=== PATIENT | male | born 1980 | race Caucasian/White ===

== ENCOUNTER → 2017-01-23 | Outpatient (CLI) | payer BC | LOC: M LAB 06:47 | PROVIDERS: ATTEND Physician Assistant | DX: E29.1 Testicular hypofunction (principal); Z12.5 Encounter for screening for malignant neoplasm of prostate ==

== ENCOUNTER → 2017-07-10 | Outpatient (REF) | payer BC | LOC: M LAB REF 12:44 | DX: L02.219 Cutaneous abscess of trunk, unspecified (principal) | CPT/HCPCS: 87186; 87205 ==

== ENCOUNTER 2018-05-30 05:33 | Emergency (ER) | payer BC ==
[~2018-05-30] VITALS: Ht 182.9 cm; Wt 122.7 kg
[2018-05-30] MEDS ORDERED: NS 1,000 ML IV ONE (06:15)
[2018-05-30] MEDS ORDERED: KETOROLAC 30 MG/ML VIAL (J1885) IV ONE (06:15)
[2018-05-30 06:16] LABS: BASO % 0.3 % (0.0-1.0); EOS % 0.4 % (0.0-3.0); HEMATOCRIT 45.2 % (42.0-52.0); HEMOGLOBIN 15.1 g/dl (13.5-17.5); LYMPH # 1.8 10^3/uL (1.5-4.5); LYMPH % 26.4 % (24.0-44.0); MEAN CORPUSCULAR HEMOGLOBIN 27.6 pg (27.0-33.0); MEAN CORPUSCULAR HGB CONC 33.4 g/dl (32.0-36.5); MEAN CORPUSCULAR VOLUME 82.6 fl (80.0-96.0); MONO # 0.4 10^3/uL (0.0-0.8); NEUTROPHILS # 4.7 10^3/uL (1.8-7.7); NEUTROPHILS % 67.3 % (36.0-66.0); PLATELET COUNT, AUTOMATED 144 10^3/uL (150-450); RED BLOOD COUNT 5.47 10^6/uL (4.30-6.10)
[2018-05-30 06:29] LABS: ALBUMIN 3.8 GM/DL (3.2-5.2); ALT/SGPT 36 U/L (12-78); AMYLASE 34 U/L (25-115); BILIRUBIN,DIRECT 0.1 MG/DL (0.0-0.2); BILIRUBIN,TOTAL 0.4 MG/DL (0.2-1.0); BLOOD UREA NITROGEN 18 MG/DL (7-18); CALCIUM LEVEL 8.9 MG/DL (8.5-10.1); CARBON DIOXIDE LEVEL 22 MEQ/L (21-32); CHLORIDE LEVEL 110 MEQ/L (98-107); CREATININE FOR GFR 1.08 MG/DL (0.70-1.30); GLOMERULAR FILTRATION RATE > 60.0 (>60); GLUCOSE, FASTING 118 MG/DL (70-100); LIPASE 82 U/L (73-393); POTASSIUM SERUM 4.3 MEQ/L (3.5-5.1); SODIUM LEVEL 140 MEQ/L (136-145); TOTAL PROTEIN 7.8 GM/DL (6.4-8.2)
--- NOTE | 2018-05-30 06:40 | REPVR ---
EXAM: US Scrotum EXAM DATE/TIME: 05/30/2018 6:29 AM CLINICAL HISTORY: 38 years old, male; Pain; Scrotum pain; Additional info: Left testicular pain; HX prostatitis TECHNIQUE: Real-time ultrasound of the scrotum and contents with color Doppler and image documentation. COMPARISON: No relevant prior studies available. FINDINGS: Right Testicle: Right testis measures 4.5 x 2.0 x 2.7 cm. No intratesticular mass. Intratesticular blood flow demonstrated. Left Testicle: Left testis measures 3.9 x 1.7 x 2.7 cm. No intratesticular mass. Intratesticular blood flow demonstrated. Epididymides: 6 mm right epididymal cyst. Scrotum: Small left varicocele. IMPRESSION: Unremarkable sonographic appearance of the testes. Electronically signed by: Tereso Allen On 05/30/2018 06:39:49 AM
--- NOTE | 2018-05-30 06:43 | REPVR ---
EXAM: CT Abdomen and Pelvis Without Contrast EXAM DATE/TIME: 05/30/2018 6:15 AM CLINICAL HISTORY: 38 years old, male; Pain; Abdominal pain; Flank; Left; Additional info: Left flank pain; Sudden onset TECHNIQUE: Axial computed tomography images of the abdomen and pelvis without contrast. All CT scans at this facility use at least one of these dose optimization techniques: automated exposure control; mA and/or kV adjustment per patient size (includes targeted exams where dose is matched to clinical indication); or iterative reconstruction. Coronal and sagittal reformatted images were created and reviewed. COMPARISON: No relevant prior studies available. FINDINGS: Lower thorax: No acute airspace or pleural disease. ABDOMEN: Detailed evaluation of the abdominal and pelvic viscera is somewhat limited in the absence of intravenous contrast. Liver: Fatty infiltration of the liver. Gallbladder and bile ducts: No cholelithiasis or biliary ductal dilatation. Pancreas: No pancreatic mass or ductal dilatation. Spleen: Enlarged spleen measuring 12.7 cm in length. Adrenals: Unremarkable adrenals. Kidneys and ureters: Mild left hydronephrosis in association with a 4 mm left UVJ calculus. Mild infiltration left periureteral fat. Stomach and bowel: Mild small bowel dilatation without a transition zone. Mild wall thickening in the nondistended stomach and colon. Diverticula, without pericolonic inflammation. Appendix: No acute appendicitis. PELVIS: Bladder: Nondistended bladder. Reproductive: Unremarkable as visualized. ABDOMEN and PELVIS: Intraperitoneal space: No significant free fluid. Bones/joints: Schmorl's nodes, mild degenerative change, disc bulging. Soft tissues: Small fat containing umbilical hernia. Vasculature: Normal caliber of the abdominal aorta. Lymph nodes: Subcentimeter lymph nodes. IMPRESSION: 1. Mild left hydronephrosis in association with a 4 mm left UVJ calculus. Mild infiltration left periureteral fat. 2. Additional findings as described above. Electronically signed by: Tereso Allen On 05/30/2018 06:43:18 AM
[2018-05-30] MEDS ORDERED: FLOM0.4C39 PO (06:57)
[2018-05-30] MEDS ORDERED: NORCOTAB PO (06:57)
[2018-05-30] MEDS ORDERED: KETO10TAB PO (06:57)
[2018-05-30] MEDS ORDERED: ONDA4TAB6 PO (06:58)
[2018-05-30 07:46] VITALS: BP 133/92
--- NOTE | 2018-05-30 11:58 | ED PDOC ---
Post-Departure Follow-Up susan ruff faxed formal report of ct abd/p for fu Josie Fajardo MD May 30, 2018 11:58
== END 2018-05-30 07:49 | disposition home or self-care (01) ==
LOC: M ED 05:33
DX: N20.1 Calculus of ureter (principal)
CPT/HCPCS: 74176; 76870; 80048; 80076; 81001; 82150; 83690; 85025; 93976; 99284; J1885

== ENCOUNTER → 2018-05-31 | Outpatient (CLI) | payer BC ==
[~2018-05-31] MED LIST: FLOM0.4C39 PO; KETO10TAB PO; NORCOTAB PO; ONDA4TAB6 PO
--- NOTE | 2018-05-31 16:59 | REP ---
Clinical: Ureteral stone. Correlation: CT dated 05/30/2018 Technique: Two supine views of the abdomen and pelvis. Findings: The 4 mm left ureterovesical junction (UVJ) stone on recent CT appears to be unchanged in position within the left rose marie pelvis and should be correlated with physical examination. No further urinary tract calcifications are identified. Bowel gas pattern is nonspecific. Skeletal structures demonstrate age-related changes. No organomegaly. Impression: Continued evidence for 4 mm left UVJ stone. Correlation with physical examination and urinalysis may be warranted. Electronically Signed by Tony Reed MD 05/31/2018 04:50 P
[2018-05-31 17:18] LABS: IONIZED CALCIUM 4.5 MG/DL (4.5-5.3)
[2018-05-31 17:48] LABS: BLOOD UREA NITROGEN 16 MG/DL (7-18); CALCIUM LEVEL 8.2 MG/DL (8.5-10.1); CARBON DIOXIDE LEVEL 26 MEQ/L (21-32); CHLORIDE LEVEL 107 MEQ/L (98-107); CREATININE FOR GFR 0.96 MG/DL (0.70-1.30); GLOMERULAR FILTRATION RATE > 60.0 (>60); GLUCOSE, FASTING 88 MG/DL (70-100); MAGNESIUM LEVEL 2.1 MG/DL (1.8-2.4); PHOSPHORUS LEVEL 3.9 MG/DL (2.5-4.9); POTASSIUM SERUM 4.1 MEQ/L (3.5-5.1); SODIUM LEVEL 141 MEQ/L (136-145); URIC ACID 6.7 MG/DL (3.5-7.2)
== END ==
LOC: M LAB 16:32
PROVIDERS: ATTEND Urology Pediatric Urology
DX: N20.1 Calculus of ureter (principal)

== ENCOUNTER → 2018-05-31 | Outpatient (REF) | payer BC | LOC: M SMT 17:58 | PROVIDERS: ATTEND Urology Pediatric Urology | DX: N20.1 Calculus of ureter (principal) ==

== ENCOUNTER → 2018-05-31 | Outpatient (REF) | payer BC | LOC: M LABSMT 16:00 | PROVIDERS: ATTEND Urology Pediatric Urology | DX: N20.1 Calculus of ureter (principal) ==

== ENCOUNTER → 2018-06-14 | Outpatient (REF) | payer BC | LOC: M SMT 13:30 | PROVIDERS: ATTEND Urology Pediatric Urology | DX: N20.1 Calculus of ureter (principal) ==

== ENCOUNTER → 2018-06-14 | Outpatient (CLI) | payer BC ==
--- NOTE | 2018-06-14 10:44 | REP ---
Supine abdomen two views: Studies performed for follow up of the distal left ureteral calculus identified on the plain film study of 05/31/[address] of 05/30/2018. The previously identified calculus in the distal left ureter on the comparison studies is no longer identified on the current study. The bowel gas pattern is normal. There is mild degenerative disc disease in the lumbar spine. Impression: The previous distal left ureteral calculus is no longer identified. Electronically Signed by Mikhail Giraldo MD 06/14/2018 10:35 A
== END ==
LOC: M SMT 08:04
PROVIDERS: ATTEND Urology Pediatric Urology
DX: Z87.442 Personal history of urinary calculi (principal)

== ENCOUNTER → 2018-06-14 | Outpatient (REF) | payer BC | LOC: M SMT 13:00 | PROVIDERS: ATTEND Urology Pediatric Urology | DX: N20.1 Calculus of ureter (principal) ==

== ENCOUNTER → 2018-06-17 | Outpatient (CLI) | payer BC ==
--- NOTE | 2018-06-17 16:42 | REP ---
CT of the abdomen pelvis without IV and oral contrast for follow up of distal left ureteral calculus: Comparison is 2018. The the previous distal left ureteral calculus is no longer present. There is no bladder calculus. There is no hydronephrosis or perinephric stranding. The right kidney and ureter are unremarkable and unchanged. The visualized lung charles are unremarkable. The unenhanced hepatic parenchyma, gallbladder, pancreas, spleen, adrenals, abdominal aorta, bowel and mesentery are unremarkable and unchanged. Pelvis: The appendix is unremarkable. There is no adenopathy or ascites. The pelvic bowel loops are unremarkable. Impression: The previous distal left ureteral calculus is no longer present. Otherwise, negative CT study of the abdomen and pelvis. Electronically Signed by Mikhail Giraldo MD 06/17/2018 04:34 P
== END ==
LOC: M RAD 16:00
PROVIDERS: ATTEND Urology Pediatric Urology
DX: Z87.442 Personal history of urinary calculi (principal)

== ENCOUNTER → 2018-08-06 | Outpatient (CLI) | payer BC ==
[~2018-08-06] MED LIST changes: +HYDR-3715 PO; -NORCOTAB PO
[2018-08-06 10:37] LABS: FOLLICLE STIMULATING HORMONE 4.9 mIU/mL (1.4-18.1); LUTEINIZING HORMONE 2.1 mIU/mL (1.5-9.3)
[2018-08-09 10:16] LABS: TESTOSTERONE FREE (DIRECT) 4.3 pg/mL (8.7-25.1)
== END ==
LOC: M SMT 08:10
PROVIDERS: ATTEND Urology Pediatric Urology
DX: N20.1 Calculus of ureter (principal)

== ENCOUNTER → 2018-08-20 | Outpatient (REF) | payer BC ==
[2018-08-20 14:08] LABS: SEMEN APPEARANCE OPAQUE (OPAQUE)
[2018-08-20 14:09] LABS: SEMEN VISCOSITY LIQUID (LIQUID); SEMEN VOLUME 3.2 ml (4.0-5.0); WBC CONCENTRATION >1 M/ml (<=1 M/ml)
[2018-08-20 14:10] LABS: SPERM CONCENTRATION 30.1 M/ml (>=15.0)
== END ==
LOC: M SMT 12:18
PROVIDERS: ATTEND Urology Pediatric Urology
DX: N20.1 Calculus of ureter (principal)

== ENCOUNTER → 2019-11-18 | Outpatient (CLI) | payer BC | LOC: M LABSMTC 12:57 | PROVIDERS: ATTEND Family Medicine | DX: Z11.59 Encounter for screening for other viral diseases (principal); Z20.828 Contact with and (suspected) exposure to other viral communicable diseases | CPT/HCPCS: C9803; U0003 ==

== ENCOUNTER → 2021-07-26 | Outpatient (REF) | payer BC | LOC: M SFHCDERM 17:08 | PROVIDERS: ATTEND Dermatology | DX: D23.4 Other benign neoplasm of skin of scalp and neck (principal) ==

== ENCOUNTER → 2021-11-19 | Outpatient (CLI) | payer BC ==
[2021-11-19 15:51] LABS: BASO % 0.4 % (0.0-1.0); EOS # 0.1 10^3/uL (0.0-0.5); EOS % 0.8 % (0.0-3.0); HEMATOCRIT 43.5 % (42.0-52.0); HEMOGLOBIN 14.1 g/dl (13.5-17.5); LYMPH # 1.7 10^3/uL (1.5-5.0); LYMPH % 19.6 % (24.0-44.0); MEAN CORPUSCULAR HEMOGLOBIN 27.3 pg (27.0-33.0); MEAN CORPUSCULAR HGB CONC 32.4 g/dl (32.0-36.5); MEAN CORPUSCULAR VOLUME 84.3 fl (80.0-96.0); MONO # 0.4 10^3/uL (0.0-0.8); MONO % 4.6 % (2.0-8.0); NEUTROPHILS # 6.3 10^3/uL (1.5-8.5); PLATELET COUNT, AUTOMATED 250 10^3/uL (150-450); RED BLOOD COUNT 5.16 10^6/uL (4.30-6.10); WHITE BLOOD COUNT 8.5 10^3/uL (4.0-10.0)
[2021-11-19 16:48] LABS: ALBUMIN 3.4 GM/DL (3.2-5.2); ALT/SGPT 42 U/L (12-78); BILIRUBIN,TOTAL 0.2 MG/DL (0.2-1.0); BLOOD UREA NITROGEN 14 MG/DL (7-18); CALCIUM LEVEL 9.1 MG/DL (8.5-10.1); CARBON DIOXIDE LEVEL 30 MEQ/L (21-32); CHLORIDE LEVEL 105 MEQ/L (98-107); CREATININE FOR GFR 1.06 MG/DL (0.70-1.30); GLOMERULAR FILTRATION RATE > 60.0 (>60); GLUCOSE, FASTING 285 MG/DL (70-100); POTASSIUM SERUM 4.2 MEQ/L (3.5-5.1); SODIUM LEVEL 138 MEQ/L (136-145); TOTAL PROTEIN 7.1 GM/DL (6.4-8.2)
[2021-11-19 17:13] LABS: IMMUNOGLOBULIN E 19.2 IU/ML (<100)
== END ==
LOC: M RAD 14:34
PROVIDERS: ATTEND Allergy & Immunology Allergy
DX: J45.41 Moderate persistent asthma with (acute) exacerbation (principal); R06.00 Dyspnea, unspecified

== ENCOUNTER → 2021-11-21 | Outpatient (CLI) | payer BC ==
[2021-11-21 10:51] LABS: APPEARANCE, URINE CLEAR (CLEAR); BACTERIA, URINE AUTO NEGATIVE (NEGATIVE); BILIRUBIN, URINE AUTO NEGATIVE (NEGATIVE); BLOOD, URINE BLOOD NEGATIVE (NEGATIVE); COLOR, URINE YELLOW (YELLOW); GLUCOSE, URINE (UA) AUTO NEGATIVE (NEGATIVE); KETONE, URINE AUTO NEGATIVE (NEGATIVE); LEUKOCYTE ESTERASE, URINE AUTO NEGATIVE (NEGATIVE); MUCUS, URINE SMALL (NEGATIVE); NITRITE, URINE AUTO NEGATIVE (NEGATIVE); PROTEIN, URINE AUTO NEGATIVE (NEGATIVE); RBC, URINE AUTO 0 /HPF (0-3); SPECIFIC GRAVITY URINE AUTO 1.023 (1.002-1.035); SQUAMOUS EPITHELIAL CELL UR AU 1 /HPF (0-6); UROBILINOGEN, URINE AUTO 0.2 mg/dL (0.0-2.0); WBC, URINE AUTO 0 /HPF (0-3)
[2021-11-21 11:16] LABS: MALB URINE SIEMENS 6.4 MG/L; MAU/CREAT RATIO 3.2 MCG/MG (0.0-30.0)
== END ==
LOC: M LAB 08:51
PROVIDERS: ATTEND Allergy & Immunology Allergy
DX: R73.9 Hyperglycemia, unspecified (principal)

== ENCOUNTER → 2021-12-02 | Outpatient (CLI) | payer BC | LOC: M PLAIMG 12:52 | PROVIDERS: ATTEND Allergy & Immunology Allergy | DX: R05.3 Chronic cough (principal); J32.0 Chronic maxillary sinusitis ==

== ENCOUNTER → 2021-12-16 | Outpatient (CLI) | payer BC ==
[~2021-12-16] MED LIST changes: +METHACHOLINE KIT (J7674) INH ONE
== END ==
LOC: M CARPUL 07:39
PROVIDERS: ATTEND Allergy & Immunology Allergy
DX: J45.41 Moderate persistent asthma with (acute) exacerbation (principal)
CPT/HCPCS: 94070; J7674

== ENCOUNTER → 2022-08-27 | Outpatient (REF) | payer BC ==
[~2022-08-27] MED LIST changes: -METHACHOLINE KIT (J7674) INH ONE
== END ==
LOC: M SFHCDERM 14:19
PROVIDERS: ATTEND Physician Assistant
DX: L72.0 Epidermal cyst (principal)

== ENCOUNTER → 2022-12-25 | Outpatient (CLI) | payer BC ==
[2022-12-25 12:16] LABS: BASO % 0.3 % (0.0-1.0); EOS # 0.1 10^3/uL (0.0-0.5); EOS % 0.9 % (0.0-3.0); HEMATOCRIT 45.3 % (42.0-52.0); HEMOGLOBIN 14.7 g/dl (13.5-17.5); LYMPH % 23.3 % (24.0-44.0); MEAN CORPUSCULAR HEMOGLOBIN 27.1 pg (27.0-33.0); MEAN CORPUSCULAR HGB CONC 32.5 g/dl (32.0-36.5); MEAN CORPUSCULAR VOLUME 83.4 fl (80.0-96.0); MONO # 0.5 10^3/uL (0.0-0.8); MONO % 5.3 % (2.0-8.0); NEUTROPHILS # 6.1 10^3/uL (1.5-8.5); NEUTROPHILS % 69.7 % (36.0-66.0); PLATELET COUNT, AUTOMATED 273 10^3/uL (150-450); RED BLOOD COUNT 5.43 10^6/uL (4.30-6.10); WHITE BLOOD COUNT 8.7 10^3/uL (4.0-10.0)
[2022-12-25 12:23] LABS: ERYTHROCYTE SEDIMENTATION RATE 83 mm/hr (0-15)
[2022-12-25 12:44] LABS: IMMUNOGLOBULIN G 1817 MG/DL (650-1600); IMMUNOGLOBULIN M 122.1 MG/DL (50-300)
[2022-12-25 12:46] LABS: IMMUNOGLOBULIN E 18.3 IU/ML (0-378)
== END ==
LOC: M LAB 11:27
PROVIDERS: ATTEND Allergy & Immunology Allergy
DX: D84.9 Immunodeficiency, unspecified (principal)

== ENCOUNTER → 2023-02-18 | Outpatient (REF) | payer BC | LOC: M LAB REF 12:42 | PROVIDERS: ATTEND Nurse Practitioner Adult Health | DX: Z11.59 Encounter for screening for other viral diseases (principal) ==

== ENCOUNTER → 2023-07-29 | Outpatient (REF) | payer BC | LOC: M LAB REF 16:24 | PROVIDERS: ATTEND Nurse Practitioner Adult Health | DX: S80.862A Insect bite (nonvenomous), left lower leg, initial encounter (principal); Y92.9 Unspecified place or not applicable; Y93.9 Activity, unspecified ==

== ENCOUNTER → 2024-02-19 | Outpatient (REF) | payer BC ==
[~2024-02-19] MED LIST changes: +ONDA-282 PO; -ONDA4TAB6 PO
== END ==
LOC: M LAB REF 15:18
PROVIDERS: ATTEND Surgery
DX: D21.6 Benign neoplasm of connective and other soft tissue of trunk, unspecified (principal)